=== PATIENT | female | born 1980 | race Caucasian/White ===

== ENCOUNTER 2016-09-11 14:20 | Emergency (ER) | payer MEDICAID ==
[~2016-09-11] VITALS: Ht 157.5 cm; Wt 67.0 kg
[~2016-09-11 14:20] MED LIST: ACET325T33 PO; DOCU-144 PO; FIORICET PO; IBUP-1542 PO; LORA-441 PO; OMEP40CA3 PO
[2016-09-11 14:23] VITALS: Ht 157.5 cm; Wt 67.0 kg
[2016-09-11] MEDS ORDERED: IBUPROFEN 600 MG TAB PO ONE (15:30)
--- NOTE | 2016-09-11 16:06 | RADRPT ---
PROCEDURE: XR Foot. CLINICAL INDICATION: Trauma TECHNIQUE: Three views of the left foot are available for review. COMPARISON: None available FINDINGS: There is no acute osseous or articular abnormality. No evidence for fracture. Bone mineral density is preserved. The articular surfaces are smooth without evidence of marginal erosions. The soft tis sues are intact without evidence of calcifications. IMPRESSION: 1. No acute osseous abnormality. RPTAT: PP .Leo Antonio MD, MD Date Time Electronically viewed and signed by .Leo Antonio MD, on 09/11/2016 16:05 .d/
--- NOTE | 2016-09-11 16:59 | RADRPT ---
PROCEDURE: Left ankle series. CLINICAL INDICATION: Left ankle pain after trauma TECHNIQUE: Three views of the left ankle were performed. COMPARISON: None. FINDINGS: There is normal mineralization and alignment of the bones of the left ankle. No acute fracture or d islocation is seen. Joint spaces are well maintained. No osteophytes or erosions are identified. N o joint effusion is identified. There is mild diffuse soft tissue swelling, particular over the late ral malleolus. IMPRESSION: 1. Unremarkable left ankle radiograph series. RPTAT: KK .Adan Leavitt MD, MD Date Time Electronically viewed and signed by .Adan Leavitt MD, MD on 09/11/2016 16:59 .B/
[2016-09-11] MEDS ORDERED: IBUP-1542 PO (17:04)
--- NOTE | 2016-09-11 17:14 | ERD ---
ER Documentation Chief Complaint Date/Time DATE: 09/11/16 TIME: 17:11 Chief Complaint left foot pain after a fall HPI This 36-year-old female complains of left ankle pain after twisting her ankle while walking today. She has pain primarily in the lateral left ankle joint without erythema, bleeding, weakness. ROS All systems reviewed and are negative except as per history of present illness. Medications Home Meds Active Scripts Ibuprofen* (Motrin*) 600 Mg Tab, 600 MG PO Q6, #20 TAB Prov:GABINO TREJO MD 09/11/16 Acetaminophen* (Tylenol*) 325 Mg Tablet, 2 TAB PO Q8 Y for PAIN AND OR ELEVATED TEMP, #20 TAB Prov:LUIZA BANUELOS PA-C 12/30/15 Acetamin/Butalbital/Caffeine* (Fioricet*) 1 Tab Tab, 1 TAB PO Q4H Y for PAIN LEVEL 1-5, #20 TAB Prov:LUIZA BANUELOS PA-C 10/27/15 Docusate Sodium* (Colace*) 100 Mg Capsule, 100 MG PO TID, #30 CAP Prov:RANULFO FERRARI PA-C 08/15/15 Ibuprofen* (Motrin*) 600 Mg Tab, 600 MG PO Q6H Y for PAIN AND OR ELEVATED TEMP, #30 TAB Prov:MATT WISE DO 05/10/15 Omeprazole* (Prilosec*) 40 Mg Capsule.dr, 40 MG PO DAILY, #30 CAP Prov:MATT WISE DO 05/10/15 Lorazepam* (Ativan*) 0.5 Mg Tablet, 0.5 MG PO Q8 for ANXIETY, #10 TAB Prov:MATT WISE DO 05/10/15 Allergies Allergies: Coded Allergies: No Known Allergy (Verified , 12/30/15) PMhx/Soc History of Surgery: Yes (C section) Anesthesia Reaction: No Hx Neurological Disorder: No Hx Respiratory Disorders: No Hx Cardiac Disorders: No Hx Psychiatric Problems: No Hx Miscellaneous Medical Probl: Yes (Preeclampsia) Hx Alcohol Use: No Hx Substance Use: No Hx Tobacco Use: No Smoking Status: Never smoker Physical Exam Vitals Vital Signs Date Time Temp Pulse Resp B/P Pulse Ox O2 Delivery O2 Flow Rate FiO2 5/10/17 14:23 97.8 74 18 124/74 99 Physical Exam Const: [] Alert, not ill-appearing. Head: Atraumatic Eyes: Normal Conjunctiva ENT: Normal External Ears, Nose and Mouth. Neck: Full range of motion..~ No meningismus. Resp: Clear to auscultation bilaterally Cardio: Regular rate and rhythm, no murmurs Abd: Soft, non tender, non distended. Normal bowel sounds Skin: No petechiae or rashes Back: No midline or flank tenderness Ext: No cyanosis, or edema. Tenderness primarily left lateral distal fibula with some swelling without erythema, warmth, metatarsal tenderness, restricted range of motion or weakness Neur: Awake and alert Psych: Normal Mood and Affect Results 24 hrs Current Medications Medications (Trade) Dose Ordered Sig/Annita Route PRN Reason Start Time Stop Time Status Last Admin Dose Admin Ibuprofen (Motrin) 600 mg ONCE ONCE PO 09/11/16 15:30 09/11/16 15:31 DC 09/11/16 15:20 Procedures/MDM X-ray left ankle 3V Interpreted by me: Bones: [No fracture] Joints: No dislocation. Impression-normal left ankle x-ray X-ray left foot 3V Interpreted by me: Bones: No fracture Joints: No dislocation Foreign body: None. Impression-normal left foot x-ray Patient signs and symptoms of left ankle sprain without evidence of fracture, dislocation, bacterial infection, deficits. Patient's was a left ankle stirrup splint. Splint Assessment: Neurovascularly intact post splint placement with good fit. Patient was also given crutches with crutch training. Patient was discharged home instructions for ice and elevation instruction to follow-up with primary doctor and possibly orthopedist for pain next week. She should return sooner for fevers, redness, new symptoms. Departure Diagnosis: Primary Impression: Left ankle sprain Encounter type: initial encounter Involved ligament of ankle: unspecified ligament Qualified Code: S93.402A - Sprain of left ankle, unspecified ligament , initial encounter Condition: Stable Patient Instructions: Treating Ankle Sprains Referrals: RAJINDER CASTANO MD Additional Instructions: Examines normal hoy. Cheque otro vez con tinoco doctor primario en el proximo sapp or regresa para mas o nueva simptomas. Va al tinoco doctor/ specialista para mas evaluacon en el proximo semana. posiblemente necesita autorizado de tinoco doctor primario para specialista. Regresa para fiebre, o mas o nueva simptomas. GABINO TREJO MD September 11, 2016 17:14
== END 2016-09-11 17:37 | disposition home or self-care (01) ==
LOC: FTE 14:20
DX: S93.402A Sprain of unspecified ligament of left ankle, initial encounter (principal); W18.39XA Other fall on same level, initial encounter; Y92.9 Unspecified place or not applicable
CPT/HCPCS: 29515; 73610; 73630; Z7610

== ENCOUNTER 2016-10-23 10:53 | Emergency (ER) | payer MEDICAID ==
[~2016-10-23] VITALS: Ht 152.4 cm; Wt 74.0 kg
[2016-10-23 11:10] VITALS: Ht 152.4 cm; Wt 74.0 kg
--- NOTE | 2016-10-23 13:35 | RADRPT ---
PROCEDURE: Ultrasound of the left lower extremity venous system. CLINICAL INDICATION: Left leg pain and swelling, deep venous thrombosis TECHNIQUE: Sandoval scale with and without compression, color doppler, spectral doppler of the venous system of the left lower extremity was performed. Venous augmentation maneuvers were utilized. COMPARISON: No prior studies are available for comparison. FINDINGS: Common femoral vein: Patent. Femoral vein: Patent. Popliteal vein: Patent. Calf veins: Patent. No soft tissue abnormalities are identified. IMPRESSION: No evidence of a deep vein thrombosis within the left lower extremity. RPTAT: AADD .Godwin Martel MD, MD Date Time Electronically viewed and signed by .Godwin Martel MD, on 10/23/2016 13:35 .B/
[2016-10-23] MEDS ORDERED: IBUP400T22 PO (13:39)
--- NOTE | 2016-10-23 14:11 | ERD ---
ER Documentation Chief Complaint Date/Time DATE: 10/23/16 TIME: 14:06 Chief Complaint has left ankle swelling x 2 months seen here after a fall HPI This is a 36-year-old female presenting to the emergency department complaining of ankle pain and swelling for the past month and a half. Patient states that she fell and had an inversion mechanism injury to her ankle. Patient states that it is improved and then now it is starting to get swollen and painful again. She rates the pain moderate in severity, and she is able to ambulate she denies taking any medication for the ROS All systems reviewed and are negative except as per history of present illness. Medications Home Meds Active Scripts Ibuprofen* (Ibuprofen*) 400 Mg Tablet, 400 MG PO Q6H Y for PAIN, #30 TAB Prov:CLARA HACKETT PA-C 10/23/16 Ibuprofen* (Motrin*) 600 Mg Tab, 600 MG PO Q6, #20 TAB Prov:GABNIO TREJO MD 09/11/16 Acetaminophen* (Tylenol*) 325 Mg Tablet, 2 TAB PO Q8 Y for PAIN AND OR ELEVATED TEMP, #20 TAB Prov:LUIZA BANUELOS PA-C 12/30/15 Acetamin/Butalbital/Caffeine* (Fioricet*) 1 Tab Tab, 1 TAB PO Q4H Y for PAIN LEVEL 1-5, #20 TAB Prov:LUIZA BANUELOS PA-C 10/27/15 Docusate Sodium* (Colace*) 100 Mg Capsule, 100 MG PO TID, #30 CAP Prov:RANULFO FERRARI PA-C 08/15/15 Ibuprofen* (Motrin*) 600 Mg Tab, 600 MG PO Q6H Y for PAIN AND OR ELEVATED TEMP, #30 TAB Prov:MATT WISE DO 05/10/15 Omeprazole* (Prilosec*) 40 Mg Capsule.dr, 40 MG PO DAILY, #30 CAP Prov:MATT WISE DO 05/10/15 Lorazepam* (Ativan*) 0.5 Mg Tablet, 0.5 MG PO Q8 for ANXIETY, #10 TAB Prov:MATT WISE DO 05/10/15 Allergies Allergies: Coded Allergies: No Known Allergy (Verified , 12/30/15) PMhx/Soc History of Surgery: Yes (C section) Anesthesia Reaction: No Hx Neurological Disorder: No Hx Respiratory Disorders: No Hx Cardiac Disorders: No Hx Psychiatric Problems: No Hx Miscellaneous Medical Probl: Yes (Preeclampsia) Hx Alcohol Use: No Hx Substance Use: No Hx Tobacco Use: No Physical Exam Vitals Vital Signs Date Time Temp Pulse Resp B/P Pulse Ox O2 Delivery O2 Flow Rate FiO2 10/23/16 11:10 98.5 78 18 119/63 99 Physical Exam General: WD/WN, in no apparent distress, non-toxic appearing HENT: NC/AT Eyes: Conjunctiva normal Neck: Supple Pulm: Clear to auscultation, normal labored breathing; no wheezing/rales/ rhonchi heard CV: Good capillary refill GI: Non-distended, no guarding Back: No masses Ext: Tender palpation over the lateral malleolus, mild swelling Neuro: Moves on all fours Skin: intact Psych: Normal mood Procedures/MDM This is a 36-year-old female presenting to the emergency department complaining of left ankle pain and swelling that radiates the calf for on/off for past two months. I have evaluated patient's past chart and she has received a x-ray of her left ankle and foot a month ago which was unremarkable for any fracture dislocation. There are examination I continue to believe that there is no fracture or dislocation. A venous ultrasound of the left calf was done and was unremarkable for deep vein thrombosis. Patient is appropriate to be discharged home to follow-up with orthopedist for further evaluation management. She stable and neurovascular intact for discharge home. Discussed return to the ER for any worsening symptoms patient understands and agrees with plan CHRIS bandage was applied, RICE instructions given Departure Diagnosis: Primary Impression: Ankle pain Condition: Stable Patient Instructions: R.I.C.E., Sprain, Ankle, No X-Ray Referrals: NO PRIMARY,CARE PHYSICIAN (PCP) Additional Instructions: Visite a earnest zavala para un EXAMEN.Regrese a estas instalaciones si no se mejora liz esperbamos o liz le dijimos. Regrese a estas instalaciones si no se mejora liz esperbamos o liz le dijimos. CLARA HACKETT PA-C Oct 23, 2016 14:11
== END 2016-10-23 13:57 | disposition home or self-care (01) ==
LOC: FTE 10:53
DX: M25.572 Pain in left ankle and joints of left foot (principal)
CPT/HCPCS: 93971; Z7502

== ENCOUNTER 2016-10-26 21:34 | Emergency (ER) | payer MEDICAID ==
[~2016-10-26] VITALS: Ht 162.6 cm; Wt 75.0 kg
[~2016-10-26 21:34] MED LIST changes: +IBUP400T22 PO
[2016-10-26 21:43] VITALS: Ht 162.6 cm; Wt 75.0 kg
[2016-10-26] MEDS ORDERED: SOD CHLORIDE 0.9% 1,000 ML IV STA (22:16)
[2016-10-26] MEDS ORDERED: METOCLOPRAMIDE 10 MG INJ IV STA (22:16)
[2016-10-26] MEDS ORDERED: LIDOCAINE/MYLANTA 40 ML BTL PO STA (22:16)
[2016-10-26] MEDS ORDERED: DIPHENHYDRAMINE 50 MG INJ IV ONE (22:30)
[2016-10-26 22:43] LABS: ADD SCAN DIFF NO
[2016-10-26 22:45] LABS: BASOPHIL # 0.1 10^3/ul (0.0-0.1); EOSINOPHILS # 0.6 10^3/ul (0.0-0.5); EOSINOPHILS % 5.9 % (0.0-7.0); HEMOGLOBIN 11.9 g/dl (12.0-16.0); LYMPHOCYTES # 4.1 10^3/ul (0.8-2.9); LYMPHOCYTES % 39.2 % (15.0-51.0); MEAN CORPUSCULAR HEMOGLOBIN 27.9 pg (29.0-33.0); MEAN CORPUSCULAR HGB CONC 32.2 g/dl (32.0-37.0); MEAN CORPUSCULAR VOLUME 86.7 fl (82.0-101.0); MONOCYTES % 9.8 % (0.0-11.0); NEUTROPHIL # 4.6 10^3/ul (1.6-7.5); NEUTROPHILS % 43.8 % (39.0-77.0); PLATELET COUNT 305 10^3/UL (140-415); RED BLOOD COUNT 4.27 10^6/ul (4.20-5.40); RED CELL DISTRIBUTION WIDTH 13.7 % (11.5-14.5); WHITE BLOOD COUNT 10.5 10^3/ul (4.8-10.8)
[2016-10-26 23:02] LABS: INR 0.91; PROTIME 12.3 Sec (12.2-14.2)
[2016-10-26 23:03] LABS: PARTIAL THROMBOPLASTIN TIME 24.7 Sec (25.0-35.0)
[2016-10-26 23:06] LABS: ANION GAP 15 (8-16); BLOOD UREA NITROGEN 12 mg/dl (7-20); CALCIUM 9.3 mg/dl (8.4-10.2); CARBON DIOXIDE 25 mmol/L (21-31); CHLORIDE 105 mmol/L (97-110); CREATININE 0.59 mg/dl (0.44-1.00); GLUCOSE 95 mg/dl (70-220); POTASSIUM 4.1 mmol/L (3.5-5.1); SODIUM 141 mmol/L (135-144)
--- NOTE | 2016-10-26 23:26 | RADRPT ---
PROCEDURE: XR Chest. CLINICAL INDICATION: Chest pain. TECHNIQUE: Single frontal view of the chest. COMPARISON: Chest dated 05/10/2015. FINDINGS: The cardiomediastinal silhouette is within normal limits. The patient body habitus and portable tech nique accentuates pulmonary vascular markings at the lung bases. The lungs are clear. No signs of p leural fluid or pneumothorax are seen. The osseous structures and soft tissues are unremarkable. IMPRESSION: No evidence for active cardiopulmonary disease. RPTAT: [facility] Physician Tiffany Date Time Electronically viewed and signed by Physician Tiffany on 10/26/2016 23:26 RS/
[2016-10-26 23:36] LABS: TROPONIN-I < 0.012 ng/ml (0.00-0.12)
[2016-10-27] MEDS ORDERED: RANI150T9 PO (01:30)
[2016-10-27] MEDS ORDERED: EXCED PO (01:30)
[2016-10-27 01:40] VITALS: BP 116/73; PULSE 90; RESP 20; TEMP 98
--- NOTE | 2016-10-27 03:20 | ERD ---
ER Documentation Chief Complaint Date/Time DATE: 10/27/16 TIME: 03:16 Chief Complaint chest pain today, headache HPI This 36-year-old female presents emergency room for both chest pain that is substernal and goes up her chest to her throat sometimes described as a burning pain she has had this for many months. She also complains of headaches that she gets for years now that she currently has one. Is described as pain across the entire front and top of her head as well as the back of her head. This headache is worse than some of the others but not the worst of her life. This 1 came on gradually. She has had no trauma. She denies any shortness of breath nausea or vomiting. She is otherwise healthy. ROS All systems reviewed and are negative except as per history of present illness. Medications Home Meds Active Scripts Acetaminophen/Aspirin/Caffeine* (Excedrin*) 1 Tab Tab, 1 TAB PO Q12, #14 TAB Prov:TERRY KLEIN DO 10/27/16 Ranitidine Hcl* (Zantac*) 150 Mg Tablet, 150 MG PO BID Y for EPIGASTRIC PAIN, # 30 TAB Prov:TERRY KLEIN DO 10/27/16 Ibuprofen* (Ibuprofen*) 400 Mg Tablet, 400 MG PO Q6H Y for PAIN, #30 TAB Prov:CLARA HACKETT PA-C 10/23/16 Ibuprofen* (Motrin*) 600 Mg Tab, 600 MG PO Q6, #20 TAB Prov:GABINO TREJO MD 09/11/16 Acetaminophen* (Tylenol*) 325 Mg Tablet, 2 TAB PO Q8 Y for PAIN AND OR ELEVATED TEMP, #20 TAB Prov:LUIZA BANUELOS PA-C 12/30/15 Acetamin/Butalbital/Caffeine* (Fioricet*) 1 Tab Tab, 1 TAB PO Q4H Y for PAIN LEVEL 1-5, #20 TAB Prov:LUIZA BANUELOS PA-C 10/27/15 Docusate Sodium* (Colace*) 100 Mg Capsule, 100 MG PO TID, #30 CAP Prov:RANULFO FERRARI PA-C 08/15/15 Ibuprofen* (Motrin*) 600 Mg Tab, 600 MG PO Q6H Y for PAIN AND OR ELEVATED TEMP, #30 TAB Prov:MATT WISE DO 05/10/15 Omeprazole* (Prilosec*) 40 Mg Capsule.dr, 40 MG PO DAILY, #30 CAP Prov:MATT WISE DO 05/10/15 Lorazepam* (Ativan*) 0.5 Mg Tablet, 0.5 MG PO Q8 for ANXIETY, #10 TAB Prov:MATT WISE DO 05/10/15 Allergies Allergies: Coded Allergies: No Known Allergy (Verified , 12/30/15) PMhx/Soc Medical and Surgical Hx: pt denies Medical Hx History of Surgery: Yes (C section) Anesthesia Reaction: No Hx Neurological Disorder: No Hx Respiratory Disorders: No Hx Cardiac Disorders: No Hx Psychiatric Problems: No Hx Miscellaneous Medical Probl: No Hx Alcohol Use: No Hx Substance Use: No Hx Tobacco Use: No Smoking Status: Never smoker Physical Exam Vitals Vital Signs Date Time Temp Pulse Resp B/P Pulse Ox O2 Delivery O2 Flow Rate FiO2 10/27/16 01:40 98.0 90 20 116/73 99 Room Air 10/26/16 22:05 98.0 76 20 137/81 100 Room Air 10/26/16 21:43 98.0 78 20 118/86 100 Physical Exam Const: [] Mild distress, appears in, Head: Atraumatic Eyes: Normal Conjunctiva, EOMI, PERRLA ENT: Normal External Ears, Nose and Mouth. Neck: Full range of motion..~ No meningismus. Resp: Clear to auscultation bilaterally Cardio: Regular rate and rhythm, no murmurs Abd: Soft, very mild epigastric tenderness without guarding or rebound r, non distended. Normal bowel sounds Skin: No petechiae or rashes Back: No midline or flank tenderness Ext: No cyanosis, or edema Neur: Awake and alert and oriented 3, no focal deficits, cranial 2 through 12 intact, no cerebellar deficits, normal gait Psych: Normal Mood and Affect Result Diagram: 10/26/16221410/26/162214 Results 24 hrs Laboratory Tests Test 10/26/16 22:15 White Blood Count 10.510^3/ul Red Blood Count 4.2710^6/ul Hemoglobin 11.9g/dl Hematocrit 37.0% Mean Corpuscular Volume 86.7fl Mean Corpuscular Hemoglobin 27.9pg Mean Corpuscular Hemoglobin Concent 32.2g/dl Red Cell Distribution Width 13.7% Platelet Count 69970^3/UL Mean Platelet Volume 12.0fl Neutrophils % 43.8% Lymphocytes % 39.2% Monocytes % 9.8% Eosinophils % 5.9% Basophils % 1.0% Nucleated Red Blood Cells % 0.0/100WBC Neutrophils # 4.610^3/ul Lymphocytes # 4.110^3/ul Monocytes # 1.010^3/ul Eosinophils # 0.610^3/ul Basophils # 0.110^3/ul Nucleated Red Blood Cells # 0.010^3/ul Prothrombin Time 12.3Sec Prothrombin Time Ratio 1.0 INR International Normalized Ratio 0.91 Activated Partial Thromboplast Time 24.7Sec Sodium Level 141mmol/L Potassium Level 4.1mmol/L Chloride Level 105mmol/L Carbon Dioxide Level 25mmol/L Anion Gap 15 Blood Urea Nitrogen 12mg/dl Creatinine 0.59mg/dl Glucose Level 95mg/dl Calcium Level 9.3mg/dl Troponin I < 0.012ng/ml Current Medications Medications (Trade) Dose Ordered Sig/Annita Route PRN Reason Start Time Stop Time Status Last Admin Dose Admin Sodium Chloride (NS) 1,000 ml @ 1,000 mls/hr Q1H STAT IV 10/26/16 22:16 10/26/16 23:15 DC 10/26/16 22:38 Metoclopramide HCl (Reglan) 10 mg ONCE STAT IV 10/26/16 22:16 10/26/16 22:18 DC 10/26/16 22:39 Miscellaneous Medication (Gi Cocktail (2)) 40 ml ONCE STAT PO 10/26/16 22:16 10/26/16 22:18 DC 10/26/16 22:38 Diphenhydramine HCl (Benadryl) 12.5 mg ONCE ONCE IV 10/26/16 22:30 10/26/16 22:31 DC 10/26/16 22:39 Procedures/MDM Likely chest pain secondary to GERD as well as acute headache. Chest pain workup was performed which was negative for acute ischemia. I have very low suspicion for cardiac ischemia this patient. She was given a GI cocktail which immediately resolved her chest pain completely. She is also given a headache cocktail of 12.5 mg of Benadryl as well as 10 mg of Reglan and normal saline which resolved her headache completely. She was completely asymptomatic and felt much better. Discharge instructions to obtain a cardiac echo from her primary care doctor. I am also discharging with Zantac and Excedrin. EKG interpretation: Normal sinus rhythm rate of 73, normal axis, normal intervals, no ST or T-wave changes concerning for acute ischemia court monitor interpretation: Normal sinus rhythm without arrhythmia Chest x-ray interpretation: I see no acute process, I see normal mediastinum without widening, no pneumothorax, no fractures no infiltrates, no pneumothorax Departure Diagnosis: Primary Impression: Chest pain Additional Impressions: Headache GERD (gastroesophageal reflux disease) Condition: Stable Patient Instructions: Self-Care for Headaches, Chest Pain, Uncertain Cause, Gerd (Adult) Referrals: [facility] YOU HAVE RECEIVED A MEDICAL SCREENING EXAM AND THE RESULTS INDICATE THAT YOU DO NOT HAVE A CONDITION THAT REQUIRES URGENT TREATMENT IN THE EMERGENCY DEPARTMENT. FURTHER EVALUATION AND TREATMENT OF YOUR CONDITION CAN WAIT UNTIL YOU ARE SEEN IN YOUR DOCTORS OFFICE WITHIN THE NEXT 1-2 DAYS. IT IS YOUR RESPONSIBILITY TO MAKE AN APPOINTMENT FOR FOLOW-UP CARE. IF YOU HAVE A PRIMARY DOCTOR --you should call your primary doctor and schedule an appointment IF YOU DO NOT HAVE A PRIMARY DOCTOR YOU CAN CALL OUR PHYSICIAN REFERRAL HOTLINE AT IF YOU CAN NOT AFFORD TO SEE A PHYSICIAN YOU CAN CHOSE FROM THE FOLLOWING ON LICENSE OF [facility] [address] [facility]. [facility] [address] [facility]. [facility] [address] [facility] [facility] [address] [facility] [facility] [address] [facility] [facility]. [address] Additional Instructions: Llame al doctor MAANA y tien von INGRIS PARA DENTRO DE 2-3 AVITIA. Consigue un referral para un ECHOCARDIOGRAMA. Dgale a la secretaria que nosotros le instruimos hacer esta ingris. Avise o llame si tinoco condicin se empeora antes de la ingris. Regresa aqui si peor o no mejor. TERRY KLEIN DO Oct 27, 2016 03:20
== END 2016-10-27 01:40 | disposition home or self-care (01) ==
LOC: E/R 21:34
DX: R07.2 Precordial pain (principal); R51 Headache; K21.9 Gastro-esophageal reflux disease without esophagitis
CPT/HCPCS: 36415; 71010; 80048; 84484; 85025; 85610; 85730; 93005; 96374; 96375; J1200; J2765; J7030; Z7502; Z7610

== ENCOUNTER 2017-04-11 17:51 | Emergency (ER) | payer SELFPAY ==
[~2017-04-11] VITALS: Ht 157.5 cm; Wt 75.8 kg
[~2017-04-11 17:51] MED LIST changes: +EXCED PO; +RANI150T9 PO
[2017-04-11 18:02] VITALS: Ht 157.5 cm; Wt 75.8 kg
== END 2017-04-11 21:15 | disposition left against medical advice (07) ==
LOC: E/R 17:51
DX: Z53.21 Procedure and treatment not carried out due to patient leaving prior to being seen by health care provider (principal)

== ENCOUNTER 2017-04-19 14:50 | Emergency (ER) | payer MEDICAID ==
[~2017-04-19] VITALS: Ht 162.6 cm; Wt 76.0 kg
[2017-04-19 14:57] VITALS: Ht 162.6 cm; Wt 76.0 kg
[2017-04-19] MEDS ORDERED: PRED20TA PO (15:59)
[2017-04-19] MEDS ORDERED: UDROBDM PO (15:59)
--- NOTE | 2017-04-19 16:07 | ERD ---
ER Documentation Chief Complaint Chief Complaint lt side facial numbness x 2 days HPI 36-year-old female presents with sensation of numbness on the left side of her face. As well as mild congestion. She denies any measured fevers, vomiting, chest pain, shortness of breath. She denies any weakness. ROS All systems reviewed and are negative except as per history of present illness. Medications Home Meds Active Scripts Guaifenesin-Dextromethorphan* (Robitussin* DM) 100MG/10MG/5ML Syrup, 5 ML PO Q4H Y for COUGH for 5 Days, ML Prov:GABINO TREJO MD 04/19/17 Prednisone* (Prednisone*) 20 Mg Tab, 40 MG PO DAILY for 4 Days, TAB Prov:GABINO TREJO MD 04/19/17 Acetaminophen/Aspirin/Caffeine* (Excedrin*) 1 Tab Tab, 1 TAB PO Q12, #14 TAB Prov:TERRY KLEIN DO 10/27/16 Ranitidine Hcl* (Zantac*) 150 Mg Tablet, 150 MG PO BID Y for EPIGASTRIC PAIN, # 30 TAB Prov:TERRY KLEIN DO 10/27/16 Ibuprofen* (Ibuprofen*) 400 Mg Tablet, 400 MG PO Q6H Y for PAIN, #30 TAB Prov:CLARA HACKETT PA-C 10/23/16 Ibuprofen* (Motrin*) 600 Mg Tab, 600 MG PO Q6, #20 TAB Prov:GABINO TREJO MD 09/11/16 Acetaminophen* (Tylenol*) 325 Mg Tablet, 2 TAB PO Q8 Y for PAIN AND OR ELEVATED TEMP, #20 TAB Prov:LUIZA BANUELOS PA-C 12/30/15 Acetamin/Butalbital/Caffeine* (Fioricet*) 1 Tab Tab, 1 TAB PO Q4H Y for PAIN LEVEL 1-5, #20 TAB Prov:LUIZA BANUELOS PA-C 10/27/15 Docusate Sodium* (Colace*) 100 Mg Capsule, 100 MG PO TID, #30 CAP Prov:RANULFO FERRARI PA-C 08/15/15 Ibuprofen* (Motrin*) 600 Mg Tab, 600 MG PO Q6H Y for PAIN AND OR ELEVATED TEMP, #30 TAB Prov:MATT WISE DO 05/10/15 Omeprazole* (Prilosec*) 40 Mg Capsule.dr, 40 MG PO DAILY, #30 CAP Prov:MATT WISE. DO 05/10/15 Lorazepam* (Ativan*) 0.5 Mg Tablet, 0.5 MG PO Q8 for ANXIETY, #10 TAB Prov:MATT WISE. DO 05/10/15 Allergies Allergies: Coded Allergies: No Known Allergy (Verified , 12/30/15) PMhx/Soc History of Surgery: Yes (C section) Anesthesia Reaction: No Hx Neurological Disorder: No Hx Respiratory Disorders: No Hx Cardiac Disorders: No Hx Psychiatric Problems: No Hx Miscellaneous Medical Probl: No Hx Alcohol Use: No Hx Substance Use: No Hx Tobacco Use: No Smoking Status: Never smoker Physical Exam Vitals Vital Signs Date Time Temp Pulse Resp B/P Pulse Ox O2 Delivery O2 Flow Rate FiO2 04/19/17 14:57 97.6 74 18 120/78 100 Physical Exam Const: [] Alert, [id number], pleasant. Head: Atraumatic Eyes: Normal Conjunctiva ENT: Normal External Ears, Nose and Mouth. TMs and oropharynx normal.No reproducible tenderness, facial swelling, erythema. Neck: Full range of motion..~ No meningismus. Resp: Clear to auscultation bilaterally Cardio: Regular rate and rhythm, no murmurs Abd: Soft, non tender, non distended. Normal bowel sounds Skin: No petechiae or rashes Back: No midline or flank tenderness Ext: No cyanosis, or edema Neur: Awake and alert. Possible very mild peripheral cranial nerve VII palsy. No cerebellar signs. Normal gait. Psych: Normal Mood and Affect Procedures/MDM This patient presents with URI symptoms for the last 2 days. She has primary complaints of left facial numbness. She possibly is early Hester's palsy. She has no current signs or symptoms of central deficits, or concerning signs or symptoms suggestive of central lesions. She will be treated with a short course of prednisone, Robitussin, further observation at home, return precautions and primary care follow-up. The patient was stable with no new complaints during the ER course. Clinically, there is no current evidence to suggest meningitis, sepsis, acute abdomen, pneumonia, acute coronary syndrome, pulmonary embolism, or any other emergent condition appearing to require further evaluation or hospitalization. The patient should certainly return for any new or worsening symptoms per the aftercare instructions. They should otherwise follow-up with her primary care doctor for reevaluation this week. Departure Diagnosis: Primary Impression: URI, acute Additional Impression: Numbness Condition: Stable Patient Instructions: Hester's Palsy, Uri, Viral, No Abx (Adult), Paraesthesias Additional Instructions: Cheque otro vez con tinoco doctor primario en el proximo sapp or regresa para mas o nueva simptomas. GABINO TREJO MD Apr 19, 2017 16:07
== END 2017-04-19 16:31 | disposition home or self-care (01) ==
LOC: FTE 14:50
DX: J06.9 Acute upper respiratory infection, unspecified (principal)
CPT/HCPCS: 99283

== ENCOUNTER 2017-05-03 14:27 | Emergency (ER) | END 2017-05-03 17:50 | disposition home or self-care (01) ==

== ENCOUNTER 2017-06-04 08:21 | Emergency (ER) | END 2017-06-04 09:20 | disposition home or self-care (01) ==

== ENCOUNTER 2017-07-25 16:40 | Emergency (ER) | END 2017-07-25 20:21 | disposition home or self-care (01) ==

== ENCOUNTER 2017-08-06 14:49 | Emergency (ER) | END 2017-08-06 15:46 | disposition home or self-care (01) ==

== ENCOUNTER 2018-11-01 21:09 | Emergency (ER) | payer MEDICAID ==
[~2018-11-01] VITALS: Ht 162.6 cm; Wt 76.4 kg
[~2018-11-01 21:09] MED LIST changes: +ALBU18HF INHALATION; +AMOX500C2 PO; +CETI10CA PO; +D-ME473S2 PO; +FLUT9.9S NASAL; +GUAI5SYR2 PO; +HYDR-4011 PO; +IBUP-1541 PO; -IBUP400T22 PO; +IBUP800T48 PO; +NAPR-985 PO; +ONDA8TAB14 PO; +PRED20TA PO; +RANI150T35 PO; -RANI150T9 PO
[2018-11-01 21:24] VITALS: Ht 162.6 cm; Wt 76.4 kg
[2018-11-01] MEDS ORDERED: ASPIRIN 325 MG TAB PO ONE (23:00)
[2018-11-02] MEDS ORDERED: IBUP-1542 PO (00:49)
[2018-11-02 01:00] VITALS: BP 112/65; PULSE 72; RESP 16
--- NOTE | 2018-11-02 01:15 | ERD ---
ER Documentation Chief Complaint Chief Complaint L SHOULDER PAIN X'S 4 DAYS HPI 38-year-old female with past medical history of high cholesterol presenting to the emergency department with complaints of left shoulder pain which radiates down her left arm for the past 5 days. She has also had chest pain which is constant and stabbing in nature. She rates the pain is 8/10 in severity. She took ibuprofen at home with some relief. She denies any falls or trauma. Her symptoms are not worse on exertion. She denies any help palpitations. She denies any previous history of cardiac events. She denies her mother or father having history of heart disease. She denies any shortness of breath. No other symptoms reported currently. ROS All systems reviewed and are negative except as per history of present illness. Medications Home Meds Active Scripts Ibuprofen* (Motrin*) 600 Mg Tab, 600 MG PO Q6, #30 TAB Prov:HENOK DESAI PA-C 11/02/18 Ibuprofen* (Motrin*) 800 Mg Tab, 800 MG PO Q6, #30 TAB Prov:VIVIANA SANDERSON PA-C 08/06/17 Prednisone* (Prednisone*) 20 Mg Tab, 60 MG PO DAILY for 4 Days, TAB Prov:VIVIANA SANDERSON PA-C 08/06/17 Ondansetron (Ondansetron Odt) 8 Mg Tab.rapdis, 8 MG PO Q6H PRN for NAUSEA AND/OR VOMITING, #10 TAB Prov:GRETCHEN VILLELA PA-C 07/25/17 Ibuprofen* (Motrin*) 600 Mg Tab, 600 MG PO Q6, #30 TAB Prov:GRETCHEN VILLELA PA-C 07/25/17 Amoxicillin* (Amoxicillin*) 500 Mg Cap, 500 MG PO TID for 7 Days, CAP Prov:GRETCHEN VILLELA PA-C 07/25/17 Dextromethorphan Hb-Promethazine Hcl* (Promethazine DM* Syrup) 473 Ml Syrup, 5 ML PO Q6 PRN for COUGH for 5 Days, ML Prov:JOHNNA RODRIGUEZ PA-C 06/04/17 Naproxen* (Naprosyn*) 500 Mg Tablet, 500 MG PO BID PRN for PAIN AND/OR INFLAMMATION, #30 TAB Prov:JOHNNA RODRIGUEZ PA-C 06/04/17 Fluticasone Propionate (Flonase Allergy Relief) 9.9 Ml [place].susp, 2 SPRAY NASAL DAILY, #1 BOTTLE TO EACH NOSTRIL Prov:JOHNNA RODRIGUEZ PA-C 06/04/17 Cetirizine Hcl* (Zyrtec*) 10 Mg Capsule, 10 MG PO DAILY, #14 TAB.CHEW Prov:JOHNNA RODRIGUEZ PA-C 06/04/17 Albuterol Sulfate* (Ventolin HFA*) 18 Gm Hfa.aer.ad, 2 PUFF INHALATION Q6H, #1 INHALER Prov:JOHNNA RODRIGUEZ PA-C 06/04/17 Hydrocodone/Acetaminophen ([place] 5-325 Tablet) 1 Each Tablet, 1 TAB PO Q6H PRN for PAIN, #12 TAB Prov:ROZ TAYLOR MD 05/03/17 Guaifenesin-Dextromethorphan* (Robitussin* DM) 100MG/10MG/5ML Syrup, 5 ML PO Q4H PRN for COUGH for 5 Days, ML Prov:GABINO TREJO MD 04/19/17 Prednisone* (Prednisone*) 20 Mg Tab, 40 MG PO DAILY for 4 Days, TAB Prov:GABINO TREJO MD 04/19/17 Acetaminophen/Aspirin/Caffeine* (Excedrin*) 1 Tab Tab, 1 TAB PO Q12, #14 TAB Prov:TERRY KLEIN DO 10/27/16 Ranitidine Hcl* (Zantac*) 150 Mg Tablet, 150 MG PO BID PRN for EPIGASTRIC PAIN, #30 TAB Prov:TERRY KLEIN DO 10/27/16 Ibuprofen* (Ibuprofen*) 400 Mg Tablet, 400 MG PO Q6H PRN for PAIN, #30 TAB Prov:CLARA HACKETT PA-C 10/23/16 Ibuprofen* (Motrin*) 600 Mg Tab, 600 MG PO Q6, #20 TAB Prov:GABINO TREJO MD 09/11/16 Acetaminophen* (Tylenol*) 325 Mg Tablet, 2 TAB PO Q8 PRN for PAIN AND OR ELEVATED TEMP, #20 TAB Prov:LUIZA BANUELOS PA-C 12/30/15 Acetamin/Butalbital/Caffeine* (Fioricet*) 1 Tab Tab, 1 TAB PO Q4H PRN for PAIN LEVEL 1-5, #20 TAB Prov:LUIZA BANUELOS PA-C 10/27/15 Docusate Sodium* (Colace*) 100 Mg Capsule, 100 MG PO TID, #30 CAP Prov:RANULFO FERRARI PA-C 08/15/15 Ibuprofen* (Motrin*) 600 Mg Tab, 600 MG PO Q6H PRN for PAIN AND OR ELEVATED TE MP, #30 TAB Prov:MATT WISE DO 05/10/15 Omeprazole* (Prilosec*) 40 Mg Capsule.dr, 40 MG PO DAILY, #30 CAP Prov:MATT WISE CourtFrancheska DO 05/10/15 Lorazepam* (Ativan*) 0.5 Mg Tablet, 0.5 MG PO Q8 for ANXIETY, #10 TAB Prov:MATT WISE DO 05/10/15 Allergies Allergies: Coded Allergies: No Known Allergy (Verified , 06/04/17) PMhx/Soc History of Surgery: Yes (C section, APPENDECTOMY) Anesthesia Reaction: No Hx Neurological Disorder: No Hx Respiratory Disorders: No Hx Cardiac Disorders: No Hx Psychiatric Problems: No Hx Miscellaneous Medical Probl: No Hx Alcohol Use: No Hx Substance Use: No Hx Tobacco Use: No Smoking Status: Never smoker FmHx Family History: No diabetes Physical Exam Vitals Vital Signs Date Temp Pulse Resp B/P (MAP) Pulse Ox O2 O2 Flow FiO2 Time Delivery Rate 11/01/18 98.5 86 16 115/67 99 21:24 (83) Physical Exam Const: No acute distress Head: Atraumatic Eyes: Normal Conjunctiva ENT: Normal External Ears, Nose and Mouth. Neck: Full range of motion. No meningismus. Tenderness palpation of the left trapezius muscle with tight musculature. Resp: Clear to auscultation bilaterally Cardio: Regular rate and rhythm, no murmurs. Reproducible left chest wall tenderness to palpation. Abd: Soft, non tender, non distended. Normal bowel sounds Skin: No petechiae or rashes Back: No midline or flank tenderness Ext: No cyanosis, or edema Neur: Awake and alert Psych: Normal Mood and Affect Result Diagram: 11/01/18225611/01/182256 Results 24 hrs Laboratory Tests Test 11/01/18 22:57 White Blood Count 10.0 10^3/ul Red Blood Count 3.95 10^6/ul Hemoglobin 10.7 g/dl Hematocrit 32.8 % Mean Corpuscular Volume 83.0 fl Mean Corpuscular Hemoglobin 27.1 pg Mean Corpuscular Hemoglobin Concent 32.6 g/dl Red Cell Distribution Width 13.3 % Platelet Count 334 10^3/UL Mean Platelet Volume 11.5 fl Immature Granulocytes % 0.200 % Neutrophils % 53.7 % Lymphocytes % 37.0 % Monocytes % 6.5 % Eosinophils % 2.0 % Basophils % 0.6 % Nucleated Red Blood Cells % 0.0 /100WBC Immature Granulocytes # 0.020 10^3/ul Neutrophils # 5.4 10^3/ul Lymphocytes # 3.7 10^3/ul Monocytes # 0.7 10^3/ul Eosinophils # 0.2 10^3/ul Basophils # 0.1 10^3/ul Nucleated Red Blood Cells # 0.0 10^3/ul Sodium Level 141 mmol/L Potassium Level 4.2 mmol/L Chloride Level 104 mmol/L Carbon Dioxide Level 26 mmol/L Anion Gap 11 Blood Urea Nitrogen 13 mg/dl Creatinine 0.71 mg/dl Est Glomerular Filtrat Rate mL/min > 60 mL/min Glucose Level 103 mg/dl Calcium Level 9.3 mg/dl Troponin I < 0.012 ng/ml Current Medications Medications Dose Sig/Annita Start Time Status Last (Trade) Ordered Route PRN Stop Time Admin Dose Reason Admin Aspirin 325 mg ONCE ONCE 11/01/18 DC 11/01/18 (Aspirin) PO 23:00 23:54 11/01/18 23:01 [place] [address] Radiology Main Line: [phone] DIAGNOSTIC IMAGING REPORT Patient: LISA GERONIMO : 1980 Age: 38 Sex: F MR #: [id number] DOS: 11/01/18 2246 Ordering MD: HENOK DESAI PA-C Location: [facility] Room/Bed: PROCEDURE: One view chest radiograph. CLINICAL INDICATION: Chest pain. TECHNIQUE: An AP view of the chest was obtained. COMPARISON: 05/10/2015 FINDINGS: Mediastinum: Unremarkable. Heart size: Normal. Pulmonary vasculature: No visible engorgement. Lungs: Clear. Costophrenic sulci: Clear. Bony structures: Grossly unremarkable for age. IMPRESSION: 1. Unremarkable single view chest. RPTAT:AAJJ Physician Rachelle Date Time Electronically viewed and signed by Physician Rachelle on 11/02/2018 00:25 GW/ CC: HENOK DESAI PA-C [id number] [place] [address] Radiology Main Line: [phone] DIAGNOSTIC IMAGING REPORT Patient: LISA GERONIMO : 1980 Age: 38 Sex: F MR #: [id number] DOS: 11/01/18 0000 Ordering MD: HENOK DESAI PA-C Location: [facility] Room/Bed: PROCEDURE: XR left shoulder. CLINICAL INDICATION: Left shoulder pain. TECHNIQUE: AP Internal and external rotation views of the left shoulder were performed. 3 images COMPARISON: None. FINDINGS: There are no visible fractures. The humeral head remains in the glenoid. The acromioclavicular relationship appears normal. The soft tissues are unremarkable. IMPRESSION: 1. Unremarkable left shoulder. RPTAT:AAJJ Physician Rachelle Date Time Electronically viewed and signed by Physician Rachelle on 11/02/2018 00:25 GW/ CC: HENOK DESAI PA-C [id number] Procedures/MDM The patient presents with left shoulder and left trapezius pain and chest pain and I considered pulmonary embolism, aortic dissection, pneumothorax among other diagnoses. Evaluation for acute coronary syndrome was performed. The HEART score (www.mdcalc.com) was utilized for risk stratification and found to be = 1. Based on this evaluation the patients risk of major adverse cardiac events is <1%. Shared decision making occurred with patient and the decision has been made to discharge the patient for outpatient evaluation and functional study within 72 hours. Patient's thoracic symptoms have stabilized while in the department and are stable for outpatient follow up. Exam and work up not consistent w/ ischemia, arrhythmia, PE or dissection. EKG: Interpreted by ED physician. Rate/Rhythm: Normal Sinus Rhythm with a rate of 83 bpm. QRS, ST, T-waves: No changes consistent w/ acute ischemia Impression: No evidence of ischemia or arrhythmia. Possible incomplete right bundle branch block. No evidence of life-threatening pathology at time of discharge. Pt/family in agreement with discharge plan/diagnosis. Pt/family advised to return immediately with any new or worsening symptoms. Follow-up with primary care physician within the next 1-2 days. Departure Diagnosis: Primary Impression: Left shoulder pain Additional Impression: Chest pain Condition: Fair Patient Instructions: Costochondritis [facility] Usted se guerra hecho un examen mdico de control que le indica que no est en von condicin que requiera tratamiento urgente en el Departamento de Emergencia. Un estudio ms profundo y el tratamiento de tinoco condicin pueden esperar sin ningn riesgo hasta que usted sea atendida/o en el consultorio de tinoco mdico o von clnica. Es responsabilidad suya arreglar von ingris para el seguimiento del myra. MANEJO DE CONDICIONES NO URGENTES EN EL FUTURO 1) Si usted tiene un mdico de atencin primaria: Usted debera llamar a tinoco mdico de atencin primaria antes de venir al departamento de emergencia. Despus de las horas de consultorio, tinoco doctor o tinoco asociado/a est disponible por telfono. El mdico o enfermero de joyce en el servicio telefnico puede asesorarle por barron medio para atender el problema, o myra contrario se puede programar von ingris. 2) Si usted no tiene un mdico de atencin primaria: Llame al mdico o clnica de referencia que aparece abajo demi las horas de consultorio para hacer von ingris para que le vean. CLINICAS: [facility] [phone] [facility] [phone] [address] [facility] [phone] [place] [id number] [phone] [place] [address] [phone] [facility] [phone] [address] Additional Instructions: Llame al doctor MAANA y tien von INGRIS PARA DENTRO DE 1-2 AVITIA.Dgale a la secretaria que nosotros le instruimos hacer esta ingris.Avise o llame si tinoco condicin se empeora antes de la ingris. Regresa aqui si peor o no mejor. HENOK DESAI PA-C Nov 02, 2018 01:15
== END 2018-11-02 01:00 | disposition home or self-care (01) ==
LOC: FTE 21:09
DX: M25.512 Pain in left shoulder (principal); R07.9 Chest pain, unspecified
CPT/HCPCS: 36415; 71045; 73030; 80048; 84484; 85025; 93005; Z7502; Z7610